=== PATIENT | male | born 1965 | race Caucasian/White ===

== ENCOUNTER 2019-11-08 08:32 | Emergency (ER) | payer OTHER, SELFPAY ==
[2019-11-08 08:34] VITALS: BP 155/99; PULSE 87; RESP 17; TEMP 36.4; O2SAT 97; BMI 30.4
[2019-11-08 08:35] VITALS: BP 158/102
--- NOTE | 2019-11-08 08:45 | ED.DCSUM_ITS ---
History of Present Illness Chief Complaint: Abd Pain Informant: Patient Onset: Weeks - Onset 5 weeks ago. Worse past 2 weeks Context: Gradual Onset Timing: Continuous Quality: Pain Location: Greater left side, pain is generalized Current Severity: Mild Maximum Severity: Moderate Worsened by: Lying flat Relieved by: Up and walking Associated Symptoms: None Narrative: Patient is a 54-year-old male has not seen a physician in many years. He p resents with generalized abdominal pain that is greater on the left side with onset approximately 5 weeks ago. He states over the last 2 weeks it is been worse and constant. The pain does occasionally variance intensity. There is no radiation. There is no urologic symptoms. There is no change in color, consistency or caliber of his stool. There is been no significant change in his diet. He denies history of constipation. There is no history of trauma. He does report back pain which is a chronic issue. He denies fever, chills or night sweats. Denies weight gain or weight loss. He states his abdomen is always prominent. He is presently on no medication. He denies history of smoking. He does admit to drinking daily. He denies history of pancreatitis. He denies use of supplements. Prior similar symptoms: No Recent Illness/Hospitalization: No - Past Medical History (1) No significant past medical history Status: Acute Past Medical History - Allergies and Home Meds Allergies/Adverse Reactions: Allergies No Known Allergies Allergy (Verified 11/08/19 08:33) Primary Care Physician: NOT,DEFINED [NON-STAFF] - Prior records reviewed: No - There are none Past Medical History: None Surgical History: no surgical history Lives: Alone Smoking Status: Never smoker Alcohol: Occasional - Daily use Drugs: None Review of Systems General: Denies: Chills, Fever, Malaise, Subjective, Sweats, Weight loss, - Eyes: Denies: Visual changes - bilaterally, Blurred Vision - bilaterally ENT: Denies: Rhinorrhea, Sore throat Cardiovascular: Denies: Chest pain, Palpitations Respiratory: Denies: Dyspnea, Dyspnea on exertion, Orthopnea, Paroxysmal nocturnal dyspnea Gastrointestinal: Reports: Abdominal pain. Denies: Nausea, Vomiting, Diarrhea, Constipation, Melena, Hematochezia Genitourinary: Denies: Dysuria, Hematuria, Frequency Musculoskeletal: Reports: Back pain. Denies: Myalgias, Arthralgias, Neck pain, Swelling, Extremity Pain, -, - Skin: Denies: Rash, Wounds Neurological: Denies: Headache, Weakness, Numbness Endocrine: Denies: Polyuria, Polydipsia Hematologic: Denies: Easy bruising, Easy bleeding Physical Exam Vital Signs/Narrative: Vital Signs Temp Pulse Resp BP Pulse Ox 11/08/19 08:35 158/102 H 11/08/19 08:34 97.6 F L 87 17 155/99 H 97 Inital Vital Signs reviewed: Yes Abdomen: Soft, Nondistended, Normal bowel sounds, No masses, Tender - Tenderness greater left side., Umbilical hernia - Small reducible. Negative for: Guarding, Rebound tenderness, Hepatomegaly, Splenomegaly, Mass, Pulsatile mass, Ventral hernia, Inguinal hernia Rectal: Deferred Extremities: Nontender, No edema Skin: Normal color, No rash, No Trauma. Negative for: Cyanosis, Diaphoresis, Jaundice Neurological: Alert, Oriented x3, Cranial nerves II-XII grossly intact, Normal Strength, Normal Sensation, Normal Gait Psychological: Normal affect, Normal Mood Diagnostic/Tx/Re-eval Laboratory Results 11/08/19 11/08/19 08:50 08:50 WBC 5.9 RBC 5.37 Hgb 15.9 Hct 48.4 MCV 90.1 MCH 29.6 MCHC 32.9 RDW Std Deviation 40.8 RDW Coeff of Ruma 12.4 Plt Count 245 MPV 9.8 Immature Gran % (Auto) 0.200 Neut % (Auto) 66.4 Lymph % (Auto) 24.8 Perkins % (Auto) 6.1 Eos % (Auto) 1.7 Baso % (Auto) 0.8 Absolute Neuts (auto) 3.9 Absolute Lymphs (auto) 1.46 Nucleated RBC % 0 Sodium 139 Potassium 3.7 Chloride 103 Carbon Dioxide 29.0 Anion Gap 7 BUN 15 Creatinine 1.09 Estim Creat Clear Calc 79.06 Est GFR (MDRD) Af Amer 90 Est GFR (MDRD) Non-Af 75 BUN/Creatinine Ratio 13.8 Glucose 207 H Calcium 8.8 Total Bilirubin 0.50 AST 19 ALT 43 Alkaline Phosphatase 78 Total Protein 7.6 Albumin 3.9 Globulin 3.7 Albumin/Globulin Ratio 1.1 Lipase 161 Was informed of his laboratory results. He commented that he has had intermittent blurred vision. The blurred vision is by ocular. He requested a referral to a physician. He was prescribed metformin. He was informed the ca use of his abdominal pain is unknown. He also informed me that he occasionally have heartburn. This may represent reflux. We will give him appropriate information regarding diet etc. with regards to reflux. - Medical Decision Making 49-year-old male with history of no symptomatic problems who presents with abdominal pain is greater left and possibly left upper quadrant with history of alcohol use will obtain lipase to assess for pancreatitis. Hepatic profile was obtained to assess enzymes in light of history of alcohol use. Electrolyte panel was obtained to assess electrolytes, renal function as well as BUN to creatinine ratio. Since patient does not have guarding or peritonitis CT was not ordered initially. ED Disposition - Plan for ED Patient: Disposition: Home or Assisted Living Diagnosis: Acute hyperglycemia, Abdominal pain of unknown cause, High blood pressure Instructions: ABDOMINAL PAIN, Unkown Cause, (Male), Hyperglycemia (High Blood Sugar), Lifestyle Changes for Controlling GERD, HYPERTENSION, To Be Confirmed Prescriptions: Metformin HCl [Metformin ER Osmotic] 500 mg PO DAILY #30 tab.er.24 Prescription Printed Referrals: NOT,DEFINED [NON-STAFF] - Dave Herman MD [STAFF PHYSICIAN] - 1 Week Additional Instructions: do not have a primary care physician you referred to Dr. Anam Zafar. Contact office to be seen within a week or so. Your blood pressure was elevated during your ER stay. If you have additional elevated blood pressure readings initiation of therapy would be indicated.
[2019-11-08 09:12] LABS: Absolute Lymphocyte Count 1.46 X10^3/uL (0.83-4.51); Absolute Neutrophil Count 3.9 X10^3/uL (2.0-7.7); Basophil# 0.05 X10^3/uL; Basophil% 0.8 % (0-1); Eosinophils% 1.7 % (0-5); Hematocrit 48.4 % (40-54); Hemoglobin 15.9 g/dL (13.0-16.5); Lymphocyte # 1.46 X10^3/ul (4.0); Lymphocyte % 24.8 % (19-41); Mean Corp Hgb Conc 32.9 g/dL (32-36); Mean Corpuscular Hgb 29.6 pg (27.0-32.0); Mean Corpuscular Volume 90.1 fL (80-94); Mean Platelet Vol. 9.8 fl (6.2-12.0); Monocyte# 0.36 X10^3/uL; Monocyte% 6.1 % (0-10); NRBC Flagged by Analyzer 0 % (0-5); Neutrophil # 3.91 X10^3/uL (2.7-7.7); Neutrophil % 66.4 % (47-70); Platelet Count 245 K/mm3 (150-450); RBC Distribution Width CV 12.4 % (11.6-14.6); RBC Distribution Width SD 40.8 fl (35.1-43.9); Red Blood Count 5.37 M/mm3 (4.6-6.2); White Blood Count 5.9 K/mm3 (4.4-11.0)
[2019-11-08 09:26] LABS: ALB/GLOB Ratio 1.1 RATIO (0.9-2.4); AST(SGOT) 19 U/L (15-37); Alanine Aminotransfer ALT/SGPT 43 U/L (16-61); Albumin, Serum 3.9 g/dL (3.2-5.0); Alkaline Phosphatase 78 U/L (45-117); Anion Gap 7 (5-15); BUN 15 mg/dL (7-18); BUN/Creat Ratio 13.8 RATIO (10-20); Calcium,Total 8.8 mg/dL (8.5-10.1); Chloride 103 mmol/L (98-107); Creatinine, Serum 1.09 mg/dL (0.70-1.30); EST Glomerular Filtration Rate 75 mL/min (>60); Est Glom Filt Rate - Afr Amer 90 mL/min (>60); Estimated Creatinine Clearance 79.06 ml/min; Globulin 3.7 g/dL (2.2-4.2); Glucose 207 mg/dL (74-106); Lipase 161 U/L (73-393); Potassium 3.7 mmol/L (3.5-5.1); Protein, Total 7.6 g/dL (6.4-8.2); Sodium Level 139 mmol/L (136-145)
[2019-11-08 10:04] VITALS: BP 149/98; PULSE 75; RESP 16; O2SAT 95
== END 2019-11-08 10:05 | disposition home or self-care (01) ==
PROVIDERS: Emergency Provider Emergency Medicine
DX: R73.9 Hyperglycemia, unspecified (principal); R10.9 Unspecified abdominal pain; R03.0 Elevated blood-pressure reading, without diagnosis of hypertension; M54.9 Dorsalgia, unspecified
CPT/HCPCS: 80053; 83690; 85025; 99283; A4216

== ENCOUNTER → 2019-12-31 07:55 | Outpatient (CLI) | payer OTHER, SELFPAY ==
--- NOTE | 2019-12-31 07:58 | US_ITS ---
STUDY: ABDOMINAL ULTRASOUND REASON FOR EXAM: Male, 54 years old. ABD PAIN - GENERALIZED MORE PAINFUL AT NIGHT TECHNIQUE: Transabdominal ultrasound was performed with real-time and static mario scale imaging. TECHNICAL QUALITY: Adequate. COMPARISON: None. FINDINGS: Liver: The liver measures 13.2 cm. There is increased echogenicity consistent with fatty infiltration. The bile ducts are within normal limits. There is hepatic color flow. The direction of portal flow is hepatopetal. There is a 1.7 cm x 1.4 cm x 1.4 cm hypoechoic nodule in the dome of the right lobe of the liver. There is also evidence of a 1.2 cm x 1.3 cm x 1.1 cm hypoechoic nodule in the left lobe. Portal vein measurement: Gallbladder: Normal distended gallbladder. The gallbladder wall measures 2.6 mm. There is a negative sonographic Petersen''s sign. There is no pericholecystic fluid. There are gallbladder polyps. Multiple gallstones. Common Bile Duct (C.B.D.): The common bile duct measures 1.4 mm. Pancreas: There is a 3.1 cm x 3.6 cm x 3.9 cm hypoechoic mass in the distal body/tail portion of the pancreas. A neoplastic process should be ruled out. Spleen: Normal size of the spleen. The spleen measures 12.0 cm x 3.5 cm x 5.2 cm. Right Kidney: Normal size of the right kidney. The right kidney measures 12.7 cm x 4.4 cm x 5.9 cm. Normal renal cortex. The right cortex measures 1.7 cm. There is no demonstrated renal mass or cyst. There is no right hydronephrosis. Left Kidney: Normal size of the left kidney. The left kidney measures 13 cm x 4.8 cm x 5.2 cm. Normal renal cortex. The left cortex measures 1.9 cm. There is no demonstrated renal mass or cyst. There is no left hydronephrosis. Aorta: Unremarkable. I.V.C.: The IVC is patent. There is no ascites. US/Abdomen Complete IMPRESSION: Pancreatic mass in the distal body/tail portion of the pancreas with the findings suggestive of hepatic metastasis. Multiple gallstones and gallbladder polyps. Electronically Signed: Gaurav Webster, at 9:09 EDT , Service support ,
== END ==
PROVIDERS: PCP Family Medicine; Referring Provider Family Medicine; Visit Provider Family Medicine
DX: R10.9 Unspecified abdominal pain (principal)
CPT/HCPCS: 76700

== ENCOUNTER → 2020-01-01 11:21 | Outpatient (CLI) | payer OTHER, SELFPAY ==
[2020-01-03 08:45] LABS: H. PYLORI STOOL AG Negative (Negative)
== END ==
LOC: LAB.FUTURE 11:24 → LAB 11:24
PROVIDERS: PCP Family Medicine; Referring Provider Family Medicine; Visit Provider Family Medicine
DX: R10.9 Unspecified abdominal pain (principal)

== ENCOUNTER → 2020-01-20 16:42 | Outpatient (CLI) | payer OTHER, SELFPAY ==
--- NOTE | 2020-01-20 16:48 | CT_ITS ---
STUDY: CT ABDOMEN AND PELVIS WITH AND WITHOUT CONTRAST REASON FOR EXAM: Male, 54 years old. PANCREATIC MASS/WEIGHT LOSS OF 35LB SINCE OCT 2019 RADIATION DOSAGE (If Supplied By Facility): CTDIvol = ( 12.08 ) mGy, DLP = ( 1227.51 ) mGycm TECHNIQUE: Transaxial images were obtained from the dome of the diaphragm to the symphysis pubis without oral contrast. Oral and amp; IV Readi-CAT and amp; 100mL Isovue-300 was administered. Sagittal and coronal images were reconstructed. Individualized dose optimization techniques were used for this CT. COMPARISON: None. FINDINGS: There is a small cluster of tree-in-bud opacities associated with calcifications within the lingula likely secondary to a remote history of an infectious process. The visualized portions of the heart are within normal limits. There are multiple ill-defined low-attenuation foci throughout the liver. Normal gallbladder and extrahepatic biliary system. Normal spleen. There is an ill-defined 5.2 x 4.2 x 3.9 cm low-attenuation focus involving the pancreatic body and tail. There is a prominent nonpathologically enlarged lymph node adjacent to the common hepatic artery measuring up to 7.3 mm in the short axis. Normal bilateral adrenal glands. Normal right kidney. Normal left kidney. Normal visualized stomach. Normal small intestine. Normal colon. The appendix is visualized and appears normal. Normal abdominal aorta. Normal inferior vena cava. Normal retroperitoneum. Normal urinary bladder. There is a round low-attenuation focus within the right gluteus medius muscle consistent with an underlying lipoma. Normal abdominal wall. There are degenerative changes of the visualized thoracic and lumbar spine. CT/CT Abd/Pelvis W/WO Contrast IMPRESSION: 5.2 x 4.2 x 3.9 cm pancreatic mass highly suspicious for an underlying malignancy. Ill-defined low-attenuation foci throughout the liver concerning for hepatic metastases. Prominent common hepatic artery lymph node may be reactive however cannot exclude underlying neoplastic involvement. Electronically Signed: Maida Schmitt MD at 17:56 EDT Tel , Service support ,
[2020-01-21 07:10] LABS: CREATININE FINGERSTICK 0.72 mg/dL (0.70-1.30); EGFR FINGERSTICK > 60 mL/min (>60)
== END ==
PROVIDERS: PCP Family Medicine
DX: C25.1 Malignant neoplasm of body of pancreas (principal)
CPT/HCPCS: 74178; Q9967

== ENCOUNTER → 2020-02-09 08:58 | Outpatient (CLI) | payer OTHER, SELFPAY ==
[2020-02-09] VITALS (9 sets, daily range): BP systolic 123–138; BP diastolic 73–87; PULSE 56–66; RESP 12–18; TEMP 37.2; O2SAT 96–100; BMI 25.1
--- NOTE | 2020-02-09 09:19 | CT_ITS ---
PROCEDURE: CT DIRECTED CORE LIVER BIOPSY INDICATION: Male, 54 years old. LIVER MASS PHYSICIAN: Dr. Eleanor Neal CONSENT: Written informed consent was obtained having explained the risks, benefits and alternatives in detail with the patient who accepted the risks and agreed to proceed. Laboratory review and clinical assessment was performed. CONSCIOUS SEDATION PROTOCOL: The Drugs used were: 2 mg Versed, IV., and 50 mcg Fentanyl, IV. The sedation time was: 16 minutes. Conscious sedation was started at 10:19 AM and terminated at 10:45 AM. The conscious sedation protocol was independently monitored. RADIATION DOSAGE (If Supplied By Facility): CTDIvol = ( 16.6 ) mGy, DLP = ( 3-33.65 ) mGycm Individualized dose optimization techniques were used for this CT. TECHNIQUE: Using CT image guidance with image documentation, a suitable location in the right lobe of the liver was identified. Using an anterior approach, puncture of the liver was uneventful with an 18-gauge core needle system. Three 18-gauge core samples were obtained, and submitted in formalin to the pathologist for further assessment. Followup CT scan revealed no distinct sequelae. CT/Biopsy/Inj or Needle Placement IMPRESSION: 1. CT directed core needle biopsy of the liver, using CT image guidance with image documentation as described. 2. Conscious Sedation protocol utilized with independent monitoring. Electronically Signed: Gaurav Webster, at 11:08 EDT , Service support ,
[2020-02-09 09:24] LABS: Platelet Count 275 K/mm3 (150-450)
[2020-02-09 09:36] LABS: International Normalized Ratio 0.9; Prothrombin Time (Protime)PT. 12.1 SECONDS (11.7-14.9)
[2020-02-09 09:37] LABS: Partial Thromboplast Time 27.3 Seconds (24.1-36.2)
[2020-02-09] MEDS: Midazolam 2 MG/2 ML Syringe IV (10:19)
[2020-02-09] MEDS: fentaNYL 100 MCG/2 ML Ampul IV (10:19)
== END ==
PROVIDERS: PCP Family Medicine
DX: C25.1 Malignant neoplasm of body of pancreas (principal); Z01.812 Encounter for preprocedural laboratory examination
CPT/HCPCS: 47000; 36415; 77012; 85049; 85610; 85730; 88172; 88305; 88307; 88313; 99156; 99157; J7040; A4216

== ENCOUNTER → 2020-05-27 16:36 | Outpatient (CLI) | payer OTHER, SELFPAY ==
[2020-02-09 09:41] VITALS: BMI 25.1
[2020-06-01 12:08] LABS: Alternaria alternata <0.10 kU/L (Class 0); Aspergillus fumigatus <0.10 kU/L (Class 0); Bahia Grass <0.10 kU/L (Class 0); Beef <0.10 kU/L (Class 0); Bermuda Grass <0.10 kU/L (Class 0); Bluegrass, Kentucky <0.10 kU/L (Class 0); Cat Hair/Dander, Standard <0.10 kU/L (Class 0); Cedar, Mountain <0.10 kU/L (Class 0); Cladosporium herbarum <0.10 kU/L (Class 0); Cockroach, American <0.10 kU/L (Class 0); Corn <0.10 kU/L (Class 0); D farinae Mite <0.10 kU/L (Class 0); D pteronyssinus <0.10 kU/L (Class 0); Dog Epithelia <0.10 kU/L (Class 0); Egg, Whole <0.10 kU/L (Class 0); Elm, American White <0.10 kU/L (Class 0); Hazelnut Tree <0.10 kU/L (Class 0); Hickory, White <0.10 kU/L (Class 0); Johnson Grass <0.10 kU/L (Class 0); Maple/Box Elder <0.10 kU/L (Class 0); Milk (Cow) <0.10 kU/L (Class 0); Mucor racemosus <0.10 kU/L (Class 0); Mugwort <0.10 kU/L (Class 0); Mulberry, White <0.10 kU/L (Class 0); Nettle <0.10 kU/L (Class 0); Oak, White <0.10 kU/L (Class 0); Peanut <0.10 kU/L (Class 0); Penicillium chrysogen <0.10 kU/L (Class 0); Pigweed, Rough <0.10 kU/L (Class 0); Plantain, English <0.10 kU/L (Class 0); Pork <0.10 kU/L (Class 0); Ragweed, Short/Common <0.10 kU/L (Class 0); Sheep Sorrel(Dock) <0.10 kU/L (Class 0); Soybean <0.10 kU/L (Class 0); Stemphylium herbarum <0.10 kU/L (Class 0); Sweet Gum <0.10 kU/L (Class 0); Sycamore, American <0.10 kU/L (Class 0); Wheat <0.10 kU/L (Class 0)
[2020-06-01 15:17] LABS: Chocolate <0.10 kU/L (Class 0)
== END ==
PROVIDERS: PCP Family Medicine; Referring Provider Family Medicine; Visit Provider Family Medicine
DX: J30.9 Allergic rhinitis, unspecified (principal)
CPT/HCPCS: 86003; 86005

== ENCOUNTER → 2020-11-04 11:31 | Outpatient (CLI) | payer OTHER, SELFPAY ==
[2020-02-09 09:41] VITALS: BMI 25.1
--- NOTE | 2020-11-04 | FLU_PTH ---
PATIENT: GUIDO LOWERY LOC: [facility]#:[id number] AGE/SX: 60/M ROOM: RE11/04/[address]: Dr. Vick Escamilla DO : 1965 BED: DIS: SPEC #: [id number] RECD: 11/04/20 12:58 STATUS: PRASANTH WINTERS #: [id number] TIFFANIE: 11/04/20 00:[address]: Vick Escamilla DEPT: CYTOLOGY RECD BY: Fernando Harmon ENTERED: 11/04/20 12:59 SP TYPE: Fluid OTHR DR: Dr. Guido Neves MD Tissues: PARACENTESIS FLUID Procedures: Special Stain Group II Surgery Specimen Level IV Cytospin Fluid HEADER OPERATION: Ultrasound-guided thoracentesis, right PRE-OP DIAGNOSIS: Ascites TISSUE SUBMITTED: Thoracentesis fluid for cytology DIAGNOSIS CYTOLOGY Thoracentesis fluid for cytology (cytospin and cell block): Negative for malignant cells. See comment. REESE:dayo 11/07/2020 COMMENT Clinical correlation and appropriate follow up are necessary. CYTOLOGY STUDY Slides are reviewed. CYTOLOGY GROSS Received is 85 ml of light yellow cloudy fluid labeled with the patient's name and and designated per the requisition as thoracentesis. Submitted for cytology preparation including cell block. / rg 11/04/2020 TC:5 CPT: 82047, 92194
--- NOTE | 2020-11-04 11:34 | US_ITS ---
PROCEDURE: Ultrasound guided paracentesis. DATE OF EXAMINATION: 11/04/2020. INDICATION: Male, 55 years old. Ascites. PHYSICIAN: Gaurav Webster M.D. TECHNIQUE: The risks, benefits, and alternatives to the procedure were explained to the patient. The specific risks of bleeding, infection, and damage to bowel were detailed and accepted. Witnessed informed consent was obtained. The abdomen was ultrasonographically surveyed. An appropriate pocket of fluid was identified at the right lower quadrant. The skin were cleaned and prepped in the usual sterile fashion. Using ultrasound guidance, the peritoneal cavity was accessed with a 5-Mosotho paracentesis needle/catheter system. The trocar was removed. A total of 4850 ml of mckayla-colored fluid were removed from the peritoneal cavity. The catheter was removed and a sterile dressing was applied. The procedure was well tolerated. US/Paracentesis with US IMPRESSION: Ultrasound guided paracentesis. Electronically Signed: Gaurav Webster MD at 13:07 EST , Service support ,
[2020-11-04 12:48] VITALS: BP 113/65; BP 118/68; BP 128/73; BP 137/82; PULSE 84; PULSE 87; RESP 18; RESP 20; TEMP 36.8; O2SAT 97; O2SAT 98
== END ==
PROVIDERS: PCP Family Medicine; Referring Provider Internal Medicine Hematology & Oncology; Visit Provider Internal Medicine Hematology & Oncology
DX: C78.7 Secondary malignant neoplasm of liver and intrahepatic bile duct (principal); R18.8 Other ascites; C25.2 Malignant neoplasm of tail of pancreas
CPT/HCPCS: 49083; 88108; 88305; 88313

== ENCOUNTER 2020-11-18 05:14 | Day surgery (SDC) | payer OTHER, SELFPAY ==
[2020-11-17 14:19] VITALS: BMI 23.6
[2020-11-18 06:14] VITALS: BP 111/74; PULSE 91; RESP 16; TEMP 36.8; O2SAT 96; BMI 23.6
[2020-11-18] MEDS: Lactated Ringers 1,000 ML 100 ML IV (06:19)
--- NOTE | 2020-11-18 06:42 | PCM.HP.BLA ---
Problem List (1) Ascites Status: Acute Qualifiers: Ascites type: malignant Qualified Code(s): R18.0 - Malignant ascites History and Physical Date of Admission: 11/18/20 Intake Vital Signs 11/17/20 Height 5 ft 10 in 11/17/20 Weight: 165 lb 11/17/20 BMI 23.6 11/17/20 BP 109/70 11/17/20 Blood Pressure Location Rt brachial 11/17/20 Position Sitting 11/17/20 Respiration 18 11/17/20 Pulse 106 H 11/17/20 Pulse Source Monitor 11/17/20 Temp 97.9 F 11/17/20 Temp Source Temporal 11/17/20 Pulse Oximetry (%) 96 11/17/20 Oxygen Delivery Method room air Intake Visit Reasons: Pleurx Tube Chief Complaint: Pleurx abdominal tube Ore Crushing Dust Collector Required: No Accompanied by: Son Is patient in pain?: Yes Allergies No Known Allergies Allergy (Verified 11/17/20 14:20) Medications acetaminophen 500 mg tablet 500 mg PO Q6H PRN 11/17/20 [History Confirmed 11/17/20] morphine 30 mg capsule,extended release pellets 30 mg PO Q12H 11/17/20 [History Confirmed 11/17/20] omeprazole 20 mg capsule,delayed release 40 mg PO DAILY cap 11/17/20 [History Confirmed 11/17/20] oxycodone 20 mg tablet 20 mg PO TID PRN 11/17/20 [History Confirmed 11/17/20] PFSH Medical History Abdominal pain (Acute) Acid reflux (Acute) Fatigue (Acute) History of back problems (Acute) Liver metastases (Acute) Nausea (Acute) Pancreatic mass (Acute) SOB (shortness of breath) (Acute) Weight loss (Acute) Surgical History (Updated 11/17/20 @ 14:17 by Deepa Son) history vasclar port placement (Acute) Family History (Updated 11/17/20 @ 14:18 by Deepa Son) Sister Breast cancer Cancer Thyroid cancer Father Cancer bladder cancer Mother Heart disease Social History (Updated 11/17/20 @ 15:[address] Pavan Lee MD) Smoking Status: Never smoker alcohol intake: never substance use type: does not use HPI HPI HPI: GUIDO LOWERY, is a 55 M who presents to the office today for HPI HPI HPI: GUIDO LOWERY, is a 55 M who presents to the office today for Uncontrolled ascites. The patient has metastatic pancreatic cancer. The patient has tense ascites and has had a paracentesis in the past. The patient was recently transitioned to hospice earlier this week and has stopped chemotherapy. ROS General General: Yes weight change and fatigue; no appetite, colon cancer, breast cancer or weakness HEENT HEENT: No difficulty swallowing, eye injury, eye surgery, swollen glands or hoarseness Endo Endocrine: No thyroid disease, diabetes mellitus, thyroid cancer, Hair loss, heat intolerance or cold intolerance Skin Skin: No rash or changing moles Breast Breast: No left breast lump, right breast lump, nipple discharge, breast pain, abnormal mammogram, abnormal US or breast enlargement Musc Musculoskeletal: Yes back problems; no arthritis, rheumatoid arthritis, gout or joint pain Cardio Cardiovascular: No murmur, pacemaker, heart disease, atrial fibrillation, high blood pressure, heart attack, heart stent, palpitations, shortness of breat with exertion or chest pain Psych Psychiatric: No depression, anxiety or hearing voices Resp Respiratory: Yes shortness of breath, No sleep apnea, No cough, No COPD, No asthma, No emphysema, No wheezing Gastro Gastrointestinal: Yes abdominal pain, Yes nausea or vomiting, No diarrhea, Yes constipation, Yes blood in stool, Yes acid reflux, Yes hemorrhoids, No ulcers, No gallbladder problem, No black,tarry stools Gregg Hematologic: No blood thinners, No blood disorders, No bleeding, No anemia, No blood clots Neuro Neurologic: No system reviewed and no additional complaints, except as docu, No as per HPI, No abnormal walking, No abnormal hearing, No abnormal movements, No abnormal speech, No behavioral changes, No burning sensations, No confusion, No seizure-like activity, No unsteadiness, No dizziness, No localized weakness, No frequent falls, No headache(s), No lack of coordination, No loss of vision, No memory loss, Yes numbness, No other visual disturbances, No radiating pain, No restless legs, No sensory deficit, No fainting, Yes tingling, No tremor(s), No weakness, No other Exam Const General: cooperative Nutritional Appearance: cachectic Orientation: alert, oriented x3 Chest Breast Palpation: No nipple discharge Resp Effort & Inspection: normal respiratory effort Auscultation: clear to auscultation bilaterally Cardio Rate: regular rate Rhythm: regular rhythm Heart Sounds: no murmurs GI Inspection: distended Palpation: soft, nontender, ascites Assessment & Plan Problems 1. Malignant ascites R18.0 Plan The patient has ascites due to metastatic pancreatic cancer. I discussed abdominal Pleurx placement with the patient. The patient has had paracentesis in the past. The patient is currently enrolled in hospice. I discussed Pleurx placement with the patient in detail. I discussed the risks of the procedure including but not limited to bleeding, infection, injury to underlying organs. The patient understands the risks and is willing to proceed with abdominal Pleurx placement. This is a palliative procedure. Pavan Lee MD Pager: [facility] [address] [place] [address] [address] [place] [address] Office:
[2020-11-18 07:53] VITALS: BP 104/74; BP 111/74; PULSE 75; RESP 14; TEMP 36.6; O2SAT 98
[2020-11-18 07:58] VITALS: BP 103/69; BP 111/74; PULSE 73; RESP 16; O2SAT 96
[2020-11-18 08:03] VITALS: BP 103/69; BP 111/74; PULSE 74; RESP 14; O2SAT 97
[2020-11-18 08:08] VITALS: BP 100/69; BP 111/74; PULSE 74; RESP 14; TEMP 36.3; O2SAT 97
--- NOTE | 2020-11-18 08:22 | PCM.OPRPT ---
Problem List (1) Ascites Status: Acute Qualifiers: Ascites type: malignant Qualified Code(s): R18.0 - Malignant ascites Report of Operation Date of Procedure: 11/18/20 Pre-Operative Diagnosis: Malignant ascites due to metastatic cancer Post-Operative Diagnosis: Same Surgery/Procedure Performed:: Ultrasound-guided Pleurx catheter placement into the peritoneal cavity Specimen's removed: 5200 cc of ascites Description of Procedure: Patient was brought back to the operating room and given Versed. His right abdomen was prepped and draped in usual sterile fashion. Ultrasound was used to localize a point where there was a copious amount of ascites. The skin was anesthetized with local anesthetic in 2 locations. 2 areas were then incised and through the superior incision a needle was placed until fluid was aspirated. Guidewire was placed through the needle and needle was removed. The peel-away sheath and dilator were placed over the guidewire and the guidewire was removed. Next the catheter was tunneled from the inferior incision to the superior incision and placed through the peel-away sheath. The cuff was secured under the skin. The catheter was placed into the peel-away sheath and the peel-away sheath was removed. The catheter was then connected to suction. 5200 cc of fluid were removed. It was clear-colored. The superior incision was then sutured closed using the absorbable suture and Dermabond glue. The catheter was sutured to the skin using the included silk suture. Dressings were applied. Patient tolerated the procedure well. He was brought to PACU in stable condition. Grafts/Implants Used: Pleurx catheter - Admit VTE Documentation VTE Mechan Device Prophylaxis: SCD's
--- NOTE | 2020-11-18 08:26 | PCM.DC.GS ---
Discharge Diet: Light diet - advance as tolerated Discharge Activity: May Shower Call your doctor if your incision/area has: Continuous Slow Oozing, Sudden Increased Bleeding, Increased Pain/ Swelling, Increased Redness Call your doctor if you observe: Fever of 101 or Higher Suture Line Care: Avoid Pulling/Pushing, Avoid Pinching/Bending Allergies/Adverse Reactions: Allergies No Known Allergies Allergy (Verified 11/18/20 06:34) Medications to take at Discharge acetaminophen 500 mg tablet 500 mg PO Q6H PRN 11/17/20 morphine 30 mg capsule,extended release pellets 30 mg PO Q12H 11/17/20 omeprazole 20 mg capsule,delayed release 40 mg PO DAILY cap 11/17/20 oxycodone 20 mg tablet 20 mg PO TID PRN 11/17/20 Orders to be completed after discharge: DEBRA RODRIGUEZ (RN COLLECT) Time Frame: 11/17/20, Facility: [facility], Location: Laboratory Primary Care Physician: Gen Neves MD [Primary Care Provider] - Test Results: Test results from this visit will be discussed in further detail at your follow-up appointment, if applicable. Please Follow Up With: Pavan Lee MD When: Follow-up as needed
[2020-11-18 08:47] VITALS: BP 111/74
== END 2020-11-18 09:02 | disposition home or self-care (01) ==
LOC: SDC 05:17 → AC 05:17
PROVIDERS: PCP Family Medicine; Referring Provider Surgery; Visit Provider Surgery
PROC: (CPT 32550; principal; 2020-11-18 07:15)
DX: C25.9 Malignant neoplasm of pancreas, unspecified (principal); C78.7 Secondary malignant neoplasm of liver and intrahepatic bile duct; R18.0 Malignant ascites
CPT/HCPCS: 49083; 49418; 87426; J7120; A4216; C1729